=== PATIENT | female | born 1970 | race Caucasian/White ===

== ENCOUNTER → 2019-10-16 | Outpatient (CLI) | payer BC | END | disposition home or self-care (01) | LOC: CFH 13:54 | PROVIDERS: ATTEND Internal Medicine | DX: Z12.31 Encounter for screening mammogram for malignant neoplasm of breast (principal) | CPT/HCPCS: 77067 ==

== ENCOUNTER 2020-04-28 05:40 | Day surgery (SDC) | payer BC ==
[~2020-04-28] VITALS: Ht 172.7 cm; Wt 87.6 kg
[2020-04-28] MEDS ORDERED: CHLORHEXIDINE 15 ML UDC MM ONE (07:00)
[2020-04-28] MEDS ORDERED: BUPIVACAINE/PF 0.25% ONE (07:09)
[2020-04-28] MEDS ORDERED: EPINEPHRINE 1 MG/ML, 1ML ONE (07:09)
[2020-04-28] MEDS ORDERED: FLUORESCEIN SODIUM 500 MG/5 ML ONE (07:09)
[2020-04-28 07:15] LABS: BASOPHILS # (AUTO) 0.03 x10^3/uL (0-0.1); BASOPHILS % (AUTO) 0 % (0-1); EOSINOPHILS # (AUTO) 0.08 x10^3/uL (0-0.4); EOSINOPHILS % (AUTO) 1 % (1-7); LYMPHOCYTES # (AUTO) 2.37 x10^3/uL (1-3.4); LYMPHOCYTES % (AUTO) 37 % (22-44); MD NO; MEAN CORPUSCULAR HEMOGLOBIN 28.8 pg (27.0-34.8); MEAN CORPUSCULAR HGB CONC 32.4 g/dL (32.4-35.8); MONOCYTES # (AUTO) 0.46 x10^3/uL (0.2-0.8); MONOCYTES % (AUTO) 7 % (2-9); NEUTROPHILS # (AUTO) 3.43 x10^3/uL (1.8-6.8); NEUTROPHILS % (AUTO) 54 % (42-75); PLATELET COUNT 238 x10^3/uL (130-400); RED BLOOD COUNT 4.72 x10^6/uL (3.82-5.3); RED CELL DISTRIBUTION WIDTH 12.6 % (9.6-15.2)
[2020-04-28 07:17] VITALS: BP 123/81
[2020-04-28 07:19] LABS: HCG UR SG 1.016 (1.003-1.030)
[2020-04-28 07:20] LABS: ANION GAP 9 mmol/L (5-15); CALCIUM 8.1 mg/dL (8.5-10.1); CHLORIDE 111 mmol/L (98-107); CREATININE 0.86 mg/dL (0.55-1.02)
[2020-04-28] MEDS ORDERED: NORE1TAB11 PO (07:25)
[2020-04-28] MEDS ORDERED: LACTATED RINGERS 1,000 ML IV SCH (07:25)
[2020-04-28] MEDS ORDERED: SCOPOLAMINE 1MG PATCH TD ONE (07:30)
[2020-04-28] MEDS ORDERED: ACETAMINOPHEN 500 MG TABLET ONE (07:30)
[2020-04-28] MEDS ORDERED: FENTANYL PF 250 MCG/5ML ONE (07:32)
[2020-04-28] MEDS ORDERED: MIDAZOLAM 1 MG/ML, 2ML ONE (07:32)
[2020-04-28] MEDS ORDERED: ROCURONIUM 10 MG/ML,10ML ONE (07:37)
[2020-04-28] MEDS ORDERED: PROPOFOL 10 MG/ML, 100ML IV ONE (07:37)
[2020-04-28] MEDS ORDERED: DEXAMETHASONE 4 MG/ML, 1ML ONE ×2 (07:46→09:10)
[2020-04-28] MEDS ORDERED: CEFAZOLIN 1,000 MG ONE ×2 (07:47→09:10)
[2020-04-28] MEDS ORDERED: ALBUTEROL SULFATE 2.5 MG/3 ML NPPB PRN (08:00)
[2020-04-28] MEDS ORDERED: OXYcodone 5 MG/5 ML ORAL.SOL UDC PO PRN (08:00)
[2020-04-28] MEDS ORDERED: PROMETHAZINE 12.5 MG SUPP PR PRN (08:00)
[2020-04-28] MEDS ORDERED: DIPHENHYDRAMINE 50 MG/ML, 1ML IVPush PRN (08:00)
[2020-04-28] MEDS ORDERED: SCOPOLAMINE 1MG PATCH TD SCH (08:00)
[2020-04-28] MEDS ORDERED: EPHEDRINE 50 MG/ML, 1ML IVPush PRN (08:00)
[2020-04-28] MEDS ORDERED: DIAZEPAM 5 MG/ML, 2ML IVPush PRN (08:00)
[2020-04-28] MEDS ORDERED: PROMETHAZINE 25 MG/ML, 1ML IVPush PRN (08:00)
[2020-04-28] MEDS ORDERED: HYDROmorphone 1 MG/ML, 1ML INJ IVPush PRN (08:00)
[2020-04-28] MEDS ORDERED: LABETALOL 5MG/ML, 20ML IV PRN (08:00)
[2020-04-28] MEDS ORDERED: ONDANSETRON 2MG/ML, 2ML IVPush PRN (08:00)
[2020-04-28] MEDS ORDERED: MEPERIDINE/PF 25MG/0.5ML IVPush PRN (08:00)
[2020-04-28] MEDS ORDERED: hydrALAzine 20 MG/ML, 1ML IV PRN (08:00)
[2020-04-28] MEDS ORDERED: ACETAMINOPHEN 325 MG TABLET PO PRN (08:00)
[2020-04-28] MEDS ORDERED: ACETAMINOPHEN 500 MG TABLET PO ONE (08:00)
[2020-04-28] MEDS ORDERED: MIDAZOLAM 1 MG/ML, 2ML IV PRN (08:00)
[2020-04-28] MEDS ORDERED: FENTANYL PF 100 MCG/2ML ONE ×2 (08:51→10:04)
[2020-04-28] MEDS ORDERED: ONDANSETRON 2MG/ML, 2ML ONE ×2 (09:10)
[2020-04-28] MEDS ORDERED: SUGAMMADEX 200 MG/2 ML IVPush ONE (09:10)
[2020-04-28] MEDS ORDERED: KETOROLAC 30 MG/1 ML ONE (09:56)
[2020-04-28] MEDS ORDERED: KETOROLAC 30 MG/1 ML IVPush ONE (10:00)
[2020-04-28] MEDS ORDERED: OXYcodone 5 MG/5 ML ORAL.SOL UDC ONE (10:04)
[2020-04-28] MEDS: FENTANYL PF 100 MCG/2ML IV PRN ×2 (10:07→10:26)
== END 2020-04-28 13:35 | disposition home or self-care (01) ==
LOC: OUT 05:40
PROVIDERS: ATTEND Obstetrics & Gynecology
DX: N81.4 Uterovaginal prolapse, unspecified (principal); Z11.59 Encounter for screening for other viral diseases; N92.0 Excessive and frequent menstruation with regular cycle; N83.8 Other noninflammatory disorders of ovary, fallopian tube and broad ligament; D25.9 Leiomyoma of uterus, unspecified; Z98.890 Other specified postprocedural states; Z91.038 Other insect allergy status; Z79.899 Other long term (current) drug therapy
CPT/HCPCS: 36415; 58552; 80048; 81025; 85025; 87635; 88305; 93005; J0171; J0690; J1100; J1885; J2250; J2405; J2704; J3010; J3490; J7120